=== PATIENT | female | born 1995 ===

== ENCOUNTER 2024-04-23 15:11 | Outpatient (CLI) | payer BC | END 2024-04-23 15:12 | disposition home or self-care (01) | LOC: ULT 15:11 | PROVIDERS: ATTEND Family Medicine | DX: N93.9 Abnormal uterine and vaginal bleeding, unspecified (principal); D25.9 Leiomyoma of uterus, unspecified; N83.201 Unspecified ovarian cyst, right side | CPT/HCPCS: 76856 ==